=== PATIENT | male | born 1955 | race Caucasian/White ===

== ENCOUNTER 2024-01-18 07:46 | Emergency (ER) | payer OTHER, SELFPAY ==
[2024-01-18 07:46] VITALS: BP 95/62; PULSE 98; RESP 22; TEMP 36.6; O2SAT 94; BMI 33.7
--- NOTE | 2024-01-18 08:02 | EDS_ITS ---
HPI History of Present Illness Chief Complaint: Weakness Narrative Narrative: 69-year-old male past medical history of hypertension, COPD, presents with 2 to 3 weeks of generalized weakness and feeling rundown. He denies any chest pain, but states he has occasionally been short of breath. Occasional cough that is nonproductive. He relates history that 10 days ago he was at another outside facility emergency department, was diagnosed with upper respiratory infection but did not receive steroids. They told him to go home and rest. He states that since then he has had continued generalized weakness. He denies any dysuria or hematuria, no problems with bowel movements. No exacerbating or alleviating factors. [facility], and was sent to the emergency department for further evaluation. He and his boss with whom he presents states that his blood pressure was slightly elevated at 146 systolic there. [facility] Medical History Bilateral lower extremity edema COPD (chronic obstructive pulmonary disease) GERD (gastroesophageal reflux disease) HTN (hypertension) Shortness of breath Home Medications albuterol sulfate 90 mcg/actuation aerosol inhaler (Ventolin HFA) 1 - 2 puff inhalation Q4H PRN PRN Wheezing #1 ea 01/18/24 [Rx Last Taken Unknown] benazepril 20 mg-hydrochlorothiazide 25 mg tablet 1 tab PO QDAY 01/18/24 [History Last Taken Unknown] fluticasone 250 mcg-salmeterol 50 mcg/dose blistr powdr for inhalation (Advair Diskus) 1 ea inhalation BID 01/18/24 [History Last Taken Unknown] latanoprost 0.005 % eye drops drp ophthalmic (eye) 01/18/24 [History Last Taken Unknown] omeprazole 20 mg capsule,delayed release 20 mg PO QDAY 01/18/24 [History Last Taken Unknown] prednisone 20 mg tablet 40 mg (2 x 20 mg) PO DAILY #10 tabs 01/18/24 [Rx Last Taken Unknown] Allergy/AdvReac Type Severity Reaction Status Date / Time No Known Allergies Allergy Verified 01/18/24 07:46 Surgical History History of cholecystectomy Social History Smoking Status: Former smoker ROS ROS ED ROS Narrative Constitutional: No fever, no chills. Generalized weakness. HEENT: No sore throat. No neck pain. No loss of vision. No rhinorrhea. Cardiovascular: No chest pain. No palpitations. No pedal edema. Respiratory: Occasional nonproductive cough, occasional shortness of breath. Abdominal: No abdominal pain. No nausea. No vomiting. Genitourinary: No dysuria. No hematuria. Musculoskeletal: No myalgias. No arthralgias. Neurologic: No headaches. No dizziness. No lightheadedness. Skin: No rash. No change in color. Psychiatric: No depression. No anxiety. EXAM Physical Exam Narrative Exam Narrative: Afebrile. Vital signs noted. HEENT: Normocephalic. Atraumatic. PERRL, EOMI. Neck soft and supple. No point tenderness or step off. Cardiovascular: Regular rate and rhythm. No murmurs, rubs, or gallops apprec iated. Respiratory: No tachypnea. Lungs clear to auscultation bilaterally. Decreased breath sounds bilateral bases. Moving a good amount of air, and speaking in full sentences. Gastrointestinal: Abdomen soft, nontender, with normoactive bowel sounds. No rebound or guarding. Neurological: Awake. Alert. Nonfocal, nonlateralizing. Skin: No rash. Normal color. No pallor. Musculoskeletal: No pedal edema. Full range of motion extremities. Const Vital Signs: 01/18/24 07:46 01/18/24 08:50 01/18/24 08:46 Temperature 97.8 F Temperature Source Temporal Pulse Rate 98 69 Respiratory Rate 22 H 17 Respiratory Effort Normal Non-Labored Respiratory Pattern Normal Blood Pressure 95/62 87/55 L Blood Pressure Mean 73 65 Pulse Ox 94 96 Oxygen Delivery Method Room Air Room Air 01/18/24 09:50 01/18/24 10:00 Temperature 97.8 F Temperature Source Oral Pulse Rate 75 76 Respiratory Rate 20 H 20 H Respiratory Effort Respiratory Pattern Blood Pressure 87/55 L 104/65 Blood Pressure Mean 65 78 Pulse Ox 95 94 Oxygen Delivery Method Room Air Room Air MDM MDM MDM Narrative Medical decision making narrative: In the differential diagnosis would be COPD exacerbation versus dehydration versus pneumonia versus urinary tract infection versus generalized weakness with unknown cause. His blood pressure here in triage was reported to be 95/62. He is afebrile. Comprehensive workup was pursued. He will be bolused normal saline and placed on a monitoring engineer given his reported hypotension. However, this may be an error. EKG was obtained and interpreted by myself independently as normal sinus rhythm at 78 bpm without ectopy or acute ST changes. No STEMI. QTc normal at 444 ms. I reviewed his laboratory work and he has normal white count of 8.5, hemoglobin 9.0. I do not feel he requires a blood transfusion I do not think this explains his fatigue. Platelet count normal at 178. Sodium is slightly low 135 with potassium 3.4, BUN of 28 and creatinine 1.04. He was bolused 2 L of normal saline. Glucose is appropriately elevated at 114 with an anion gap of 5. I do not see any evidence of profound dehydration. Urinalysis was obtained and there is 0-5 white cells. While he might have rare bacteria, I do not feel that he has a UTI that requires antibiotics. Additionally, given his low blood pressure that was reported, I obtained a lactic acid and it is normal on review. He is able to ambulate in the ED and his blood pressure has come up to at least 104, 119 systolic when ambulating. At this point in time, I am unsure as to the cause of his shortness of breath and malaise and fatigue, but I do feel he can be discharged to follow-up with his primary care provider. Regarding his shor tness of breath, chest x-ray was obtained and interpreted by myself independently as no evidence of pneumonia or pneumothorax. I do not feel he requires antibiotics. I reviewed the radiology report which confirms my independent interpretation and comments on atelectasis. I wrote him a prescription for a new inhaler, and for a steroid burst for the next 5 days as he may be having a COPD exacerbation. I do not feel he requires admission or observation at this time. Return instructions to the emergency department were reviewed. Disposition is discharged home in stable condition. History & Record Review Discussion w/independent historian: Patient Lab Data Attestation: I reviewed the patient's lab results. Labs: Laboratory Results - last 24 hr 01/18/24 01/18/24 08:10 08:45 WBC 8.5 RBC 2.85 L Hgb 9.0 L Hct 27.7 L MCV 97.2 H MCH 31.6 MCHC 32.5 RDW Std Deviation 47.6 H RDW Coeff of Lucinda 13.4 Plt Count 178 MPV 8.4 Immature Gran % (Auto) 3.300 H Neut % (Auto) 79.4 H Lymph % (Auto) 9.8 L [place] % (Auto) 6.6 Eos % (Auto) 0.4 Baso % (Auto) 0.5 Absolute Neuts (auto) 6.7 Absolute Lymphs (auto) 0.83 Nucleated RBC % 0 Sodium 135 L Potassium 3.4 L Chloride 102 Carbon Dioxide 28.0 Anion Gap 5 BUN 28 H Creatinine 1.04 Estim Creat Clear Calc 78.50 Est GFR (MDRD) Af Amer 91 Est GFR (MDRD) Non-Af 75 BUN/Creatinine Ratio 26.9 H Glucose 114 H Lactic Acid 0.9 Calcium 8.2 L Total Bilirubin 1.00 AST 35 ALT 97 H Alkaline Phosphatase 40 L Troponin I High Sens 8 Total Protein 6.6 Albumin 2.7 L Globulin 3.9 Albumin/Globulin Ratio 0.7 L Urine Color Genna Urine Clarity Sl. Cloudy Urine pH 5.0 Ur Specific [place] 1.015 Urine Protein 15 H Urine Glucose (UA) Normal Urine Ketones Negative Urine Occult Blood Negative Urine Nitrite Negative Urine Bilirubin 1 H Urine Urobilinogen 4 H Ur Leukocyte Esterase 100 H Urine RBC 0 SEEN Urine WBC 0-5 SEEN Ur Squamous Epith Cells 0-5 SEEN Urine Bacteria RARE Urine Mucus RARE Radiography Chest X-Ray - ED: Read by ED Physician Diagnostic Testing: Clinical Impression(s) from Imaging Studies Chest X-Ray 01/18/24 09:10 IMPRESSION: Minimal linear bibasilar atelectasis. Electronically Signed: Reinaldo Ceja MD at 9:26 EDT , Discharge Plan Triage Chief Complaint: Weakness ED Provider: Toan Nieves Dx/Rx/DC Orders Clinical Impression: Malaise and fatigue, Shortness of breath, Low energy Instructions: ED COPD Flare, ED Dyspnea, ED Weakness (Uncertain Cause) Prescriptions: New prednisone 20 mg tablet 40 mg PO DAILY Qty: 10 0RF albuterol sulfate [Ventolin HFA] 90 mcg/actuation HFA aerosol inhaler 1 - 2 puff inhalation Q4H PRN PRN (Reason: Wheezing) Qty: 1 0RF No Action benazepril-hydrochlorothiazide 20-25 mg tablet 1 tab PO QDAY fluticasone propion-salmeterol [Advair Diskus] 250-50 mcg/dose blister with device 1 ea inhalation BID latanoprost 0.005 % drops ophthalmic (eye) omeprazole 20 mg capsule,delayed release(DR/EC) 20 mg PO QDAY Primary Care Provider: Care Physician,No Primary Referrals: Care Physician,No Primary [Primary Care Provider] - Activity Restrictions/Additional Instructions: Follow-up with your primary care provider when possible. Keep a log of your blood pressures to make sure that they are not below 100 as the top number. Disposition Disposition: Home, Self Care
[2024-01-18 08:17] LABS: Absolute Lymphocyte Count 0.83 X10^3/uL (0.83-4.51); Absolute Neutrophil Count 6.7 X10^3/uL (2.0-7.7); Basophil# 0.04 X10^3/uL; Basophil% 0.5 % (0-1); Eosinophil# 0.03 X10^3/uL; Eosinophils% 0.4 % (0-5); Hematocrit 27.7 % (40-54); Lymphocyte # 0.83 X10^3/ul (0.83-4.51); Lymphocyte % 9.8 % (19-41); Mean Corp Hgb Conc 32.5 g/dL (32-36); Mean Corpuscular Hgb 31.6 pg (27.0-32.0); Mean Corpuscular Volume 97.2 fL (80-94); Mean Platelet Vol. 8.4 fl (6.2-12.0); Monocyte# 0.56 X10^3/uL; Monocyte% 6.6 % (0-10); NRBC Flagged by Analyzer 0 % (0-5); Neutrophil # 6.74 X10^3/uL (2.7-7.7); Neutrophil % 79.4 % (47-70); Platelet Count 178 K/mm3 (150-450); RBC Distribution Width CV 13.4 % (11.6-14.6); RBC Distribution Width SD 47.6 fl (35.1-43.9); Red Blood Count 2.85 M/mm3 (4.6-6.2); White Blood Count 8.5 K/mm3 (4.4-11.0)
[2024-01-18] MEDS: 0.9% Normal Saline (1000mL) 1,000 ML 1000 ML IV (08:34)
[2024-01-18 08:35] LABS: ALB/GLOB Ratio 0.7 RATIO (0.9-2.4); AST(SGOT) 35 U/L (15-37); Alanine Aminotransfer ALT/SGPT 97 U/L (16-61); Albumin, Serum 2.7 g/dL (3.2-5.0); Alkaline Phosphatase 40 U/L (45-117); Anion Gap 5 (5-15); BUN 28 mg/dL (7-18); BUN/Creat Ratio 26.9 RATIO (10-20); Calcium,Total 8.2 mg/dL (8.5-10.1); Chloride 102 mmol/L (98-107); Creatinine, Serum 1.04 mg/dL (0.70-1.30); EST Glomerular Filtration Rate 75 mL/min (>60); Est Glom Filt Rate - Afr Amer 91 mL/min (>60); Globulin 3.9 g/dL (2.2-4.2); Glucose 114 mg/dL (74-106); Potassium 3.4 mmol/L (3.5-5.1); Protein, Total 6.6 g/dL (6.4-8.2); Sodium Level 135 mmol/L (136-145); Troponin-I HS 8 pg/mL (3.0-78.0)
[2024-01-18 08:50] VITALS: BP 87/55; PULSE 69; RESP 17; O2SAT 96
[2024-01-18 08:52] LABS: Red Blood Cells-Urine 0 SEEN /hpf (0-5)
[2024-01-18 09:01] LABS: Color, Urine Amber (Yellow); Glucose, Dipstick Normal (Normal); Ketone-Dipstick Negative (Negative); Leukocyte Esterase-Dipstick 100 /ul (Negative); Nitrite-Dipstick Negative (Negative); Occult Blood-Urine Negative /ul (Negative); Protein-Dipstick 15 mg/dl (Negative); Specific Gravity, Urine 1.015 (1.002-1.030); Urine Clarity Sl. Cloudy (Clear); Urine Urobilinogen 4 mg/dl (Normal)
[2024-01-18 09:05] LABS: Lactic Acid 0.9 mmol/L (0.4-1.9)
--- NOTE | 2024-01-18 09:10 | RAD_ITS ---
STUDY: X-RAY CHEST REASON FOR EXAM: Male, 69 years old. Shortness of Breath TECHNIQUE: Single AP portable view of the chest. COMPARISON: None. FINDINGS: EKG electrodes are seen. Minimal linear bibasilar atelectasis. There is no demonstrated pleural abnormality. Normal size heart. Normal mediastinum and tim. Normal visualized pulmonary arteries. There is atherosclerotic calcification of the aortic arch with tortuosity. Normal visualized thoracic spine. Normal visualized ribs, clavicles, and shoulders. There is no demonstrated abnormality of the visualized soft tissue structures of the upper abdomen. RAD/Chest 1 View (Portable) IMPRESSION: Minimal linear bibasilar atelectasis. Electronically Signed: Reinaldo Ceja MD at 9:26 EDT ,
[2024-01-18] MEDS: 0.9% Normal Saline (1000mL) 1,000 ML 999 ML IV (09:24)
[2024-01-18 09:29] LABS: Urine Bilirubin Dipstick 1 mg/dL (Negative)
[2024-01-18 09:32] LABS: Bacteria RARE /hpf (None Seen); Mucous, Urine RARE /hpf (<or=2+); Squamous Epithelial Cells - UA 0-5 SEEN /hpf (0-5); White Blood Cells 0-5 SEEN /hpf (0-5)
[2024-01-18 09:50] VITALS: BP 87/55; PULSE 75; RESP 20; TEMP 36.6; O2SAT 95
[2024-01-18 10:00] VITALS: BP 104/65; PULSE 76; RESP 20; O2SAT 94
[2024-01-18 11:44] VITALS: BP 132/74; PULSE 78; RESP 16; TEMP 36.4; O2SAT 94
== END 2024-01-18 11:48 | disposition home or self-care (01) ==
PROVIDERS: Emergency Provider Emergency Medicine; Visit Provider Emergency Medicine
DX: R53.81 Other malaise (principal); J44.9 Chronic obstructive pulmonary disease, unspecified; R06.02 Shortness of breath; Z87.891 Personal history of nicotine dependence
CPT/HCPCS: 71045; 80053; 81001; 83605; 84484; 85025; 93005; 96360; 96361; 99284; J7030; A4216